=== PATIENT | female | born 1945 | race Caucasian/White ===

== ENCOUNTER → 2021-03-12 | Outpatient (CLI) | payer OTHER ==
[~2021-03-12] MED LIST: GLUCOPHAGE1000 MG PO; IMDUR ER TAB 3030 MG PO; LIPITOR TAB 1010 MG PO; LISINOPRIL5 MG PO; NORVASC 5 MG TAB5 MG PO; SYNTHROID 100100 MCG PO; TOPROL XL 25 MG25 MG PO; TRICOR 145 MG145 MG PO; VITAMIN D35000 UNIT PO
== END ==
LOC: RT 14:08
DX: I10 Essential (primary) hypertension (principal); E11.9 Type 2 diabetes mellitus without complications
CPT/HCPCS: 93005

== ENCOUNTER → 2021-09-06 | Outpatient (CLI) | payer OTHER ==
[~2021-09-06] VITALS: Ht 160 cm; Wt 95.3 kg
== END ==
LOC: OPSV 09:00
DX: D50.9 Iron deficiency anemia, unspecified (principal); K90.9 Intestinal malabsorption, unspecified; I20.8 Other forms of angina pectoris; I10 Essential (primary) hypertension; M54.16 Radiculopathy, lumbar region; E53.8 Deficiency of other specified B group vitamins
CPT/HCPCS: 96365; J1439; J7030

== ENCOUNTER → 2021-09-16 | Outpatient (CLI) | payer OTHER | LOC: HEART 5 07:23 | DX: I20.9 Angina pectoris, unspecified (principal); I08.1 Rheumatic disorders of both mitral and tricuspid valves; I35.0 Nonrheumatic aortic (valve) stenosis | CPT/HCPCS: 78452; 93306; A9502; J2785 ==

== ENCOUNTER → 2021-10-12 | Outpatient (CLI) | payer OTHER | LOC: OPSV 10:51 | DX: K90.9 Intestinal malabsorption, unspecified (principal); D50.9 Iron deficiency anemia, unspecified; I20.8 Other forms of angina pectoris; I10 Essential (primary) hypertension; M54.16 Radiculopathy, lumbar region; E53.8 Deficiency of other specified B group vitamins; Z23 Encounter for immunization; Z71.9 Counseling, unspecified | CPT/HCPCS: 96365; J1439; J7030 ==